=== PATIENT | female | born 1970 | race Caucasian/White ===

== ENCOUNTER → 2024-12-23 10:40 | Outpatient (REF) | payer OTHER, SELFPAY | LOC: EMG 10:40 | PROVIDERS: ATTENDING PHYSICIAN Psychiatry & Neurology Neurology; FAMILY PHYSICIAN Nurse Practitioner Adult Health | DX: M79.605 Pain in left leg (principal); R20.0 Anesthesia of skin | CPT/HCPCS: 95886; 95911 ==